=== PATIENT | female | born 1995 | race Caucasian/White ===

== ENCOUNTER 2023-05-03 15:38 | Emergency (ER) | payer SELFPAY ==
[~2023-05-03] VITALS: Ht 170.2 cm; Wt 65.7 kg
[2023-05-03 16:25] VITALS: BP 126/76; O2SAT 100
[2023-05-03] MEDS ORDERED: MECL-299 MT (19:29)
[2023-05-03] MEDS ORDERED: NAPR375T5 MT (19:29)
[2023-05-03] MEDS ORDERED: LIDO700A15 TP (19:29)
[2023-05-03] MEDS ORDERED: CYCL5TAB MT (19:29)
[2023-05-03 20:08] VITALS: PULSE 76; RESP 16; TEMP 98.2
== END 2023-05-03 20:08 | disposition home or self-care (01) ==
LOC: ER 15:38
DX: S16.1XXA Strain of muscle, fascia and tendon at neck level, initial encounter (principal); R42 Dizziness and giddiness; V49.59XA Passenger injured in collision with other motor vehicles in traffic accident, initial encounter; Y93.89 Activity, other specified; Y92.89 Other specified places as the place of occurrence of the external cause; Y99.8 Other external cause status
CPT/HCPCS: 99283